=== PATIENT | male | born 1980 | race African-American/Black ===

== ENCOUNTER 2019-07-11 15:07 | Inpatient (IN) | payer MEDICAID ==
[~2019-07-11] VITALS: Ht 185.4 cm; Wt 91.6 kg
[2019-07-11] MEDS ORDERED: ONDANSETRON HCL 4MG/2ML INJ IV STA ×2 (16:10→20:40)
[2019-07-11] MEDS ORDERED: SODIUM CHLORIDE 0.9% 1,000 ML IV ONE (16:10)
[2019-07-11] MEDS ORDERED: KETOROLAC 30MG/ML VIAL IV STA (16:10)
[2019-07-11] MEDS ORDERED: CLONIDINE 0.2MG TABLET PO ONE (16:15)
[2019-07-11 17:03] LABS: BASOPHILS % 0.7 % (0.0-2.0); EOSINOPHILS % 3.9 % (0.0-5.0); HEMATOCRIT. 40.5 % (42.0-52.0); HEMOGLOBIN. 14.5 g/dL (14.0-18.0); LYMPHOCYTES % 22.3 % (20.0-50.0); MEAN CORPUSCULAR HEMOGLOBIN 29.4 pg (28.0-32.0); MEAN CORPUSCULAR VOLUME 81.8 fL (80.0-94.0); MEAN PLATELET VOLUME 7.8 fl (7.4-10.4); MONOCYTES % 6.9 % (2.0-8.0); NEUTROPHILS % 66.2 % (40.0-76.0); PLATELET 220 x1000/uL (130-400); RED BLOOD CELL COUNT 4.95 mill/uL (4.7-6.1); RED CELL DISTRIBUTION WIDTH 13.8 % (11.6-14.6)
[2019-07-11 17:09] LABS: CHLORIDE 99 mEq/L (98-107)
[2019-07-11 17:15] LABS: PROTHROMBIN TIME 9.9 sec (9.6-11.0)
[2019-07-11] MEDS ORDERED: POTASSIUM CHLORIDE 20MEQ TABLET SR PO ONE ×2 (17:15→19:00)
[2019-07-11] MEDS ORDERED: HYDRALAZINE 20MG/ML VIAL IV ONE (18:00)
[2019-07-11] MEDS ORDERED: ENOXAPARIN 100MG/ML SYR SUBCUT ONE (18:30)
[2019-07-11] MEDS ORDERED: ASPIRIN 325MG EC TABLET PO ONE (18:30)
[2019-07-11] MEDS ORDERED: DILTIAZEM HCL 125 MG in DEXT 5% WATER 100 ML IV ONE (18:30)
[2019-07-11] MEDS ORDERED: DOCUSATE SODIUM 100MG CAPSULE PO PRN (19:00)
[2019-07-11] MEDS ORDERED: ONDANSETRON HCL 4MG/2ML INJ IV PRN (19:00)
[2019-07-11] MEDS ORDERED: GUAIFENESIN 200MG/10ML SUGAR FREE UDC PO PRN (19:00)
[2019-07-11] MEDS: DILTIAZEM HCL 125 MG in DEXTROSE 5% WATER 125 ML IV PRN (19:31)
[2019-07-11] MEDS ORDERED: MORPHINE SULFATE 4 MG/ML CPJ (NOT FOR IM USE) IV STA (20:40)
[2019-07-11 21:45] VITALS: BP 194/109
[2019-07-11 22:00] VITALS: BP 190/101
[2019-07-11] MEDS: CLONIDINE 0.1MG TABLET PO PRN (22:18)
[2019-07-11] MEDS: HYDROCODONE/ACETAMINOPHEN 5/325MG TABLET PO PRN (22:18)
[2019-07-11 22:30] VITALS: BP 178/100
[2019-07-11 23:00] VITALS: BP 156/96
[2019-07-11 23:07] LABS: CREATINE KINASE MB FRACTION 2.4 ng/mL (0.5-3.6)
[2019-07-11 23:30] VITALS: BP 137/96
[2019-07-11 23:45] VITALS: BP 139/76
[2019-07-12] VITALS (75 sets, daily range): BP systolic 100–185; BP diastolic 29–106
[2019-07-12] MEDS: CLONIDINE 0.1MG TABLET PO PRN ×2 (04:43→10:13)
[2019-07-12 05:45] LABS: BASOPHILS % 0.6 % (0.0-2.0); EOSINOPHILS % 3.7 % (0.0-5.0); HEMATOCRIT. 39.8 % (42.0-52.0); HEMOGLOBIN. 13.7 g/dL (14.0-18.0); LYMPHOCYTES % 30.2 % (20.0-50.0); MEAN CORPUSCULAR HEMOGLOBIN 28.3 pg (28.0-32.0); MEAN CORPUSCULAR VOLUME 82.3 fL (80.0-94.0); MEAN PLATELET VOLUME 7.8 fl (7.4-10.4); MONOCYTES % 7.4 % (2.0-8.0); NEUTROPHILS % 58.1 % (40.0-76.0); PLATELET 221 x1000/uL (130-400); RED BLOOD CELL COUNT 4.84 mill/uL (4.7-6.1); RED CELL DISTRIBUTION WIDTH 13.7 % (11.6-14.6)
[2019-07-12 05:53] LABS: CHLORIDE 100 mEq/L (98-107)
[2019-07-12 06:04] LABS: LDL CHOLESTEROL 213 mg/dL (5-100)
[2019-07-12 06:06] LABS: CREATINE KINASE MB FRACTION 2.4 ng/mL (0.5-3.6)
[2019-07-12 06:08] LABS: T4 FREE 0.89 ng/dL (0.76-1.46)
[2019-07-12 06:09] LABS: CREATINE KINASE 167 IU/L (39-308); HDL CHOLESTEROL 44 mg/dL (40-59)
[2019-07-12] MEDS: DILTIAZEM HCL 125 MG in DEXTROSE 5% WATER 125 ML IV PRN (06:27)
[2019-07-12] MEDS ORDERED: POTASSIUM CHLORIDE INJ 40 MEQ in DEXT 5% WATER 250 ML IV NR (08:00)
[2019-07-12] MEDS ORDERED: DILTIAZEM HCL 125 MG in DEXT 5% WATER 100 ML IV PRN (08:11)
[2019-07-12] MEDS ORDERED: POTASSIUM CHLORIDE 20MEQ/PACKET PO SCH (08:15)
[2019-07-12] MEDS ORDERED: AMLODIPINE 10MG TABLET PO SCH (09:00)
[2019-07-12] MEDS ORDERED: LISINOPRIL 20MG TABLET PO SCH (09:00)
[2019-07-12] MEDS ORDERED: NICARDIPINE 100 MG in SODIUM CHLORIDE 0.9% 60 ML IV PRN (11:45)
[2019-07-12] MEDS: HYDROCODONE/ACETAMINOPHEN 5/325MG TABLET PO PRN (12:04)
[2019-07-12] MEDS: NICARDIPINE 50 MG in SODIUM CHLORIDE 0.9% 230 ML IV PRN ×3 (12:33→23:49)
[2019-07-12] MEDS ORDERED: MORPHINE SULFATE 2 MG/ML CPJ (NOT FOR IM USE) IV PRN (13:15)
[2019-07-12] MEDS ORDERED: HYDRALAZINE HCL 50MG TABLET PO SCH (14:00)
[2019-07-12] MEDS: HYDRALAZINE HCL 25MG TABLET PO SCH ×2 (14:50→22:05)
[2019-07-12 16:11] LABS: CREATINE KINASE MB FRACTION 1.8 ng/mL (0.5-3.6)
[2019-07-12 18:02] LABS: CLARITY URINE CLEAR (CLEAR); COLOR URINE YELLOW (YELLOW); KETONES URINE TRACE (NEGATIVE); LEUKOCYTE ESTERASE URINE NEGATIVE (NEGATIVE); NITRITE URINE NEGATIVE (NEGATIVE); OCCULT BLOOD URINE NEGATIVE (NEGATIVE); PH URINE 5.5 (4.5-8.0); PROTEIN URINE 3+ (NEGATIVE); SPECIFIC GRAVITY URINE 1.019 (1.005-1.030); UROBILINOGEN URINE 0.2 E.U./dL (0.2-1.0)
[2019-07-12 18:18] LABS: PHENCYCLIDINE URINE SCREEN NEGATIVE (NEGATIVE)
[2019-07-12 18:19] LABS: *AMPHETAMINES SCREEN URINE NEGATIVE (NEGATIVE); *BARBITURATES SCREEN URINE NEGATIVE (NEGATIVE); *BENZODIAZEPINES SCREEN URINE NEGATIVE (NEGATIVE); *COCAINE SCREEN URINE NEGATIVE (NEGATIVE); CANNABINOID URINE SCREEN NEGATIVE (NEGATIVE); METHADONE URINE SCREEN NEGATIVE (NEGATIVE); OPIATES URINE SCREEN PRESUMTIVE POSITIVE (NEGATIVE)
[2019-07-12] MEDS ORDERED: ATORVASTATIN CALCIUM 20MG TABLET PO SCH (21:00)
[2019-07-13] VITALS: BP 114/63
[2019-07-13 00:26] LABS: CREATINE KINASE MB FRACTION 2.2 ng/mL (0.5-3.6)
[2019-07-14 19:11] LABS: ANTI-NUCLEAR ANTIBODIES DIRECT Negative (Negative)
[2019-07-15 13:16] LABS: COMPLEMENT C3 140 mg/dL (82-167)
== END 2019-07-13 00:20 | disposition short-term general hospital (02) | DRG 199 ==
LOC: ER 15:07 → MICUSO 18:41 → SUPCPDRO 18:48 → ENRESERV 21:02 → 5EST 07-12 07:58
PROVIDERS: ADMIT Hospitalist; ATTEND Hospitalist
DX: I16.1 Hypertensive emergency (principal); N17.9 Acute kidney failure, unspecified; I67.4 Hypertensive encephalopathy; E78.5 Hyperlipidemia, unspecified; I12.9 Hypertensive chronic kidney disease with stage 1 through stage 4 chronic kidney disease, or unspecified chronic kidney disease; N18.9 Chronic kidney disease, unspecified; H50.10 Unspecified exotropia; E87.6 Hypokalemia; R51 Headache; D35.00 Benign neoplasm of unspecified adrenal gland; I70.1 Atherosclerosis of renal artery; Z79.899 Other long term (current) drug therapy
CPT/HCPCS: 36415; 71045; 76770; 78580; 80061; 80305; 81003; 82550; 82553; 83036; 83880; 84439; 84443; 84484; 85379; 86038; 86160; 93005; 93306; 93970; 99291; J0360; J1650; J1885; J2270; J2405; J3480; J3490; J7030; J7050; J7060